=== PATIENT | male | born 1955 | race Caucasian/White ===

== ENCOUNTER 2020-01-15 15:50 | Inpatient (IN) ==
--- NOTE | 2020-01-15 16:34 | Diag Imaging Result Doc PS360 ---
CHEST-1 VIEW - 01/15/2020 INDICATION: cough COMPARISON: 09/03/2019 FINDINGS: Stable left chest device. 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 Stable hyperexpanded lungs compatible with COPD. Stable extensive bilateral apical pulmonary scarring. No new or focal infiltrates. No pneumothorax or pleural effusion. IMPRESSION: No change from prior. Electronically signed by Jeremy Powell 01/15/2020 4:31 PM
[2020-01-15 16:40] LABS: INR 2.35; PROTIME 26.4 Seconds (11.0-16.0)
[2020-01-15 16:41] LABS: BASO# 0.05 X1000 (0.0-0.2); BASO% 0.5 % (0.0-0.8); EOS# 0.01 X1000 (0.0-0.7); EOS% 0.1 % (0.0-10.0); HEMATOCRIT 42.8 % (42.0-52.0); HEMOGLOBIN 14.3 g/dL (14.0-18.0); IMM GRAN# 0.05 X1000 (0.0-0.04); IMM GRAN% 0.5 % (0.0-0.5); MCH 32.4 PG (27-31); MCHC 33.4 g/dL (33-37); MCV 97.1 FL (81-99); MONO# 1.67 X1000 (0.11-0.59); MONO% 17.5 % (1.7-9.3); MPV 10.2 FL (7.4-10.4); NEUT# 5.75 X1000 (1.4-6.5); NEUT% 60.4 % (42.2-75.2); PLT 270 X1000 (130-400); PTT 79.7 Seconds (22.3-41.8); RBC 4.41 XMIL (4.7-6.1); RDW 13.4 % (11.5-14.5); WBC 9.53 X1000 (4.8-10.8)
[2020-01-15 16:48] LABS: AGAP 13; ALB/GLOB RATIO 1.3; ALBUMIN 3.7 g/dL (3.5-5.0); ALKALINE PHOSPHATASE 72 U/L (32-122); BUN 13 mg/dL (8-22); CALCIUM 8.4 mg/dL (8.8-10.2); CHLORIDE 94 mmol/L (98-107); CK PROFILE 91 U/L (24-204); COSMO 263; CREATININE 1.1 mg/dL (0.7-1.2); ESTIMATED GFR > 60; GLUCOSE 101 mg/dL (70-104); GOT 14 U/L (10-34); GPT 9 U/L (10-44); POTASSIUM 4.3 mmol/L (3.5-5.1); SODIUM 131 mmol/L (136-145); TCO2 24 mmol/L (25-35); TOTAL BILIRUBIN 0.27 mg/dL (0.20-1.00); TOTAL PROTEIN 6.5 g/dL (6.3-8.3)
[2020-01-15] MEDS ORDERED: ROCEPHIN 1 GM in NS 50 ML IV ONE (17:55)
[2020-01-15] MEDS ORDERED: ZITHROMAX 500 MG/NS 500 MG/250 ML IVPB IV ONE (17:56)
[2020-01-15] MEDS ORDERED: NS 1,000 ML IV ONE (18:57)
[2020-01-15] MEDS ORDERED: CIPRO HC OTIC SUSPENSION LEFT EAR ONE (19:08)
--- NOTE | 2020-01-15 19:10 | PROVIDER DOCUMENTATION ---
This chart was entered by Fly Huerta Scribe, acting as scribe for Hue Silverman MD. HPI-General Adult - General Chief Complaint: SEPSIS ALERT - D Stated Complaint: POSS PNEUMONIA Time Seen by Provider: 01/15/20 17:02 Source: patient Allergies/Adverse Reactions: Patient Allergies Allergy/AdvReac Type Severity Reaction Status Date / Time No Known Allergies Allergy Verified 01/15/20 18:17 Home Medications: Home Medication List Medication Instructions Recorded Confirmed Last Taken Type Aspirin 81 mg PO DAILY 09/03/19 01/15/20 01/15/20 History Carvedilol [Coreg] 12.5 mg PO BID 09/03/19 01/15/20 01/15/20 History Isosorbide Mononitrate [Isosorbide 30 mg PO BID 09/03/19 01/15/20 01/15/20 History Mononitrate ER] PRAVAstatin [Pravachol] 20 mg PO QHS 09/03/19 01/15/20 01/14/20 History Amoxicillin/Pot Clavulanate 875 mg PO Q12HR #14 tab 01/12/20 01/15/20 01/15/20 Rx [Augmentin] Elviteg/Cob/Emtri/Tenof Alafen 1 tab PO DAILY 01/12/20 01/15/20 01/15/20 History [Genvoya Tablet] Sacubitril/Valsartan [Entresto 24 24 - 26 mg PO BID 01/15/20 01/15/20 01/15/20 History mg-26 mg Tablet] Acetaminophen [Tylenol] 650 mg PO Q6H PRN PRN tab 01/17/20 Unknown Rx Amoxicillin/Potassium Clav 1 ea PO BID 7 Days #14 tab 01/17/20 Unknown Rx [Augmentin 875-125 Tablet] Guaifenesin E.r. [Mucinex] 600 mg PO Q12HR 30 Days #60 tab 01/17/20 Unknown Rx Warfarin [Coumadin] 5 mg PO SuMoWeFrSa tab 01/17/20 Unknown Rx Warfarin [Coumadin] 7.5 mg PO TuTh tab 01/17/20 Unknown Rx - History of Present Illness -Gen Adult Nature of Presenting Problems: 64 y/o M presents to the ED c/o cough, left ear pain, congestion and drainage. Onset a few days ago. Patient states that he feels like he has pneumonia. Patient reports that he was placed on Amoxicillin earlier this week for a facial abscess. Patient denies known fever and all other symptoms. Location of Pain/Injury: reports: other (chest and ear) Pain Radiation: reports: no radiation Quality of Pain: reports: none Severity: reports: mild Onset/Duration: reports: 3 days ago Timing: reports: still present Context/Activities at Onset: reports: none Modifying Factors: improves with: nothing Associated Symptoms: reports: cough, EENT symptoms, sinus congestion/drainage Similar Symptoms Previously?: Yes Recently seen or treated by another doctor?: Yes Review of Systems - Adult - REVIEW OF SYSTEMS - ADULT Constitutional: reports: chills. denies: fever Eyes: reports: no symptoms reported Ears, Nose, Mouth & Throat: reports: no symptoms reported Cardiovascular: denies: chest pain, palpitations Respiratory: reports: cough Gastrointestinal: denies: abdominal pain, diarrhea, nausea, vomiting Genitourinary: reports: no symptoms reported Musculoskeletal: reports: no symptoms reported Integumentary: reports: no symptoms reported Neurological: denies: dizziness/vertigo, headache/migraines Psychiatric: reports: no symptoms reported Endocrine: reports: no symptoms reported Hematologic/Lymphatic: reports: no symptoms reported Allergic/Immunologic: reports: no symptoms reported All Other Systems: Reviewed and Negative Past History - Adult - PAST MEDICAL HISTORY-ADULT Review of Records: reports: Nursing Assessment Review, Medications Reviewed Major Childhood Illnesses: reports: denies history Cardiovascular: reports: CAD, CHF, HTN, CT (x2) Respiratory: reports: asthma, COPD Gastrointestinal: reports: denies history Obstetrical/Gynecological: reports: denies history Genitourinary: reports: denies history Musculoskeletal: reports: denies history Neurological: reports: denies history Endocrine/Immune: reports: HIV/AIDS Other Conditions: reports: denies history - PRIOR SURGERIES/PROCEDURES Surgical/Procedure History: reports: other (cervical spine) - IMMUNIZATION STATUS Childhood Immunizations: See Nurse Assessment Flu Vaccine: See Nurse Assessment - FAMILY HISTORY Family History: reviewed, not pertinent - SOCIAL HISTORY Smoking: cigarettes, less than 1 pack/day Substance Use: none/never Physical Exam-General - PHYSICAL EXAM-ADULT Initial Vital Signs Reviewed: Yes - CONSTITUTIONAL General Appearance: alert, no apparent distress - HEAD, EARS, NOSE, MOUTH & THROAT HENMT: moist mucous membranes, TM abnormal (left drainage and erythema) - NECK Neck: full range of motion, normal inspection - RESPIRATORY Respiratory: no respiratory distress, no accessory muscle use, crackles, rhonchi - CARDIOVASCULAR Cardiovascular: normal peripheral pulses, tachycardia - GASTROINTESTINAL (ABDOMEN) Abdominal Exam: non tender, soft - MUSCULOSKELETAL Back Exam: normal inspection Extremity: normal inspection - SKIN Integumentary: normal color, warm/dry - NEUROLOGIC Neurologic: no motor/sensory deficits - PSYCHIATRIC Psych/Mental Status: normal mood/affect, oriented x 3 Progress - PLAN OF CARE/RESULTS Progress/Plan/Lab Results: Vital Signs - 8 hr 01/15/20 15:54 Temperature 99.0 F Pulse Rate 129 H Respiratory Rate 22 Blood Pressure 112/68 O2 Sat by Pulse Oximetry 96 Laboratory Results - last 24 hr 01/15/20 01/15/20 01/15/20 16:10 16:10 16:10 WBC 9.53 RBC 4.41 L Hgb 14.3 Hct 42.8 MCV 97.1 MCH 32.4 H MCHC 33.4 RDW Std Deviation 13.4 Plt Count 270 MPV 10.2 Immature Gran % (Auto) 0.5 Neut % (Auto) 60.4 Lymph % (Auto) 21.0 [place] % (Auto) 17.5 H Eos % (Auto) 0.1 Baso % (Auto) 0.5 Immature Gran # (Auto) 0.05 H Neut # (Auto) 5.75 Lymph # (Auto) 2.00 [place] # (Auto) 1.67 H Eos # (Auto) 0.01 Baso # (Auto) 0.05 PT 26.4 H INR 2.35 PTT (Actin FS) 79.7 H Sodium 131 L Potassium 4.3 Chloride 94 L Carbon Dioxide 24 L Anion Gap 13 BUN 13 Creatinine 1.1 Estimated GFR/1.73 m2 > 60 BUN/Creatinine Ratio 12 Glucose 101 Calculated Osmolality 263 Calcium 8.4 L Total Bilirubin 0.27 AST 14 ALT 9 L Alkaline Phosphatase 72 Creatine Kinase 91 Troponin T High Sens Total Protein 6.5 Albumin 3.7 Globulin 2.8 Albumin/Globulin Ratio 1.3 Plasma Lactate 01/15/20 01/15/20 16:10 16:10 WBC RBC Hgb Hct MCV MCH MCHC RDW Std Deviation Plt Count MPV Immature Gran % (Auto) Neut % (Auto) Lymph % (Auto) [place] % (Auto) Eos % (Auto) Baso % (Auto) Immature Gran # (Auto) Neut # (Auto) Lymph # (Auto) [place] # (Auto) Eos # (Auto) Baso # (Auto) PT INR PTT (Actin FS) Sodium Potassium Chloride Carbon Dioxide Anion Gap BUN Creatinine Estimated GFR/1.73 m2 BUN/Creatinine Ratio Glucose Calculated Osmolality Calcium Total Bilirubin AST ALT Alkaline Phosphatase Creatine Kinase Troponin T High Sens 11 Total Protein Albumin Globulin Albumin/Globulin Ratio Plasma Lactate 0.8 Orders Category Date Time Status Cardiac Monitoring DIRECTED Care 01/15/20 15:58 Active IV Insertion ORDERED Care 01/15/20 15:58 Active Notify MD of + Sepsis Screen NOW Care 01/15/20 15:58 Active Notify Physician As Ordered Care 01/15/20 15:58 Active CHEST-1 VIEW [RAD] Stat Exams 01/15/20 15:58 Completed BLOOD CULTURE [BLDCUL] Stat Lab 01/15/20 16:10 Ordered CBC WITH DIFF [HEME] Stat Lab 01/15/20 16:10 Completed CK PROFILE [SP CHEM] Stat Lab 01/15/20 16:10 Completed COMPREHENSIVE METABOLIC PANEL [CHEM] Stat Lab 01/15/20 16:10 Completed LACTATE, PLASMA [CHEM] Lab 01/15/20 19:00 Uncollected LACTATE, PLASMA [CHEM] Lab 01/15/20 22:00 Uncollected LACTATE, PLASMA [CHEM] Q3H Lab 01/15/20 16:10 Completed PROTIME WITH INR [COAG] Stat Lab 01/15/20 16:10 Completed PTT [COAG] Stat Lab 01/15/20 16:10 Completed TROPONIN T HIGH SENSITIVITY Stat Lab 01/15/20 16:10 Completed URINALYSIS W/POSS RFLX CULT [URINALYSIS] Stat Lab 01/15/20 15:58 Uncollected Oxygen Device Stat Oth 01/15/20 15:58 Active Result Diagrams: 01/16/20 07:09 01/16/20 07:09 - XRAY 1 XRAY Study: Chest Impression: See EMR Report (CHEST-1 VIEW - 01/15/2020 INDICATION: cough COMPARISON: 09/03/2019 FINDINGS: Stable left chest device. 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 Stable hyperexpanded lungs compatible with COPD. Stable extensive bilateral apical pulmonary scarring. No new or focal infiltrates. No pneumothorax or pleural effusion. IMPRESSION: No change from prior. Electronically signed by Jeremy kim 01/15/2020 4:31 PM 01/15/20 1631 Interpreting Physician: Jeremy Powell MD Dictated Date/Time: 01/15/20 1629 cc: Hue Silverman MD; None,PCP) - CHANGE OF SHIFT REPORT (ED Provider) 1 Report Given and Care Transferred to:: Dr Dias Time of Transfer: 19:10 Items Pending: Other (peding admission) Departure - Departure Date of Disposition Decision: 01/15/20 Time of Disposition Decision: 19:00 DIAGNOSIS: COPD (chronic obstructive pulmonary disease) Qualifiers: COPD type: unspecified COPD Qualified Code(s): J44.9 - Chronic obstructive pulmonary disease, unspecified Disposition: ADMITTED INPATIENT 09 Certified Medical Emergency: Emergent Condition: Stable - Critical Care Note This patient required my direct & personal management of CC.: Yes Attestation - Physician/ VALORIE Attestation Patient care was provided by Advanced Practice Provider:: No The physician spent face to face time with patient:: Yes Advanced Practice Provider documentation review:: Supervising physician onsite and consulted in the evaluation and care of this patient. The physician did have a face to face encounter with the patient. This chart was documented by the indicated scribe, (Fly Huerta, Lidia) and accurately reflects the services I performed and decisions made by me, Hue Silverman MD, as attested by the provider's signature.
--- NOTE | 2020-01-15 20:00 | Diag Imaging Result Doc PS360 ---
EXAM: CT THORAX W/O CONTRAST HISTORY: cough, tachycardia, fever and chills TECHNIQUE: CT chest without intravenous contrast COMPARISON: 09/22/2013 FINDINGS: No pleural effusions. No cardiomegaly. No aortic aneurysm. There are several calcified subcarinal and right hilar lymph nodes. Mildly prominent noncalcified mediastinal nodes. These are slightly larger than on the prior study. There is emphysema and scarring in the apices. This has progressed. There is bronchial wall thickening. No consolidation. IMPRESSION: 1.Bronchitis 2.Emphysema 3.Fibrosis which has progressed compared to the prior study 4.Mildly prominent mediastinal nodes which are more pronounced than on the prior exam This exam was performed using automated exposure control, adjustment of mA or kV according to patient size, and/or use of iterative reconstruction technique. Electronically signed by Rao Shin 01/15/2020 7:58 PM
--- NOTE | 2020-01-15 21:17 | Diag Imaging Result Doc PS360 ---
EXAM: CT HEAD W/WO CONTRAST HISTORY: HIV, subjective fevers, purulent ear drainage TECHNIQUE: CT head with and without intravenous contrast COMPARISON: None. FINDINGS: No parenchymal hemorrhage. No epidural or subdural hematoma. No subarachnoid hemorrhage. No mass or midline shift. No enhancing lesion on the postcontrast images. No hydrocephalus. IMPRESSION: No hemorrhage or mass This exam was performed using automated exposure control, adjustment of mA or kV according to patient size, and/or use of iterative reconstruction technique. Electronically signed by Rao Shin 01/15/2020 9:14 PM
--- NOTE | 2020-01-15 21:18 | Diag Imaging Result Doc PS360 ---
EXAM: CT MAXILLOFACIAL(SINUS) W/CON HISTORY: hiv< SUBJECTIVE FEVERS, PUS DRAINAGE FROM EAR TECHNIQUE: CT sinuses with intravenous contrast COMPARISON: None. FINDINGS: The left masseter muscle is prominent and enhances compared to the right. No well-defined mass. No fluid collection. No sinus opacification. No air-fluid levels. IMPRESSION: Prominent enhancing left masseter muscle, but no well-defined mass or abscess. Electronically signed by Rao Shin 01/15/2020 9:16 PM
[2020-01-15 21:43] LABS: URINE SOURCE CLEAN CATCH
[2020-01-15] MEDS ORDERED: VANCOMYCIN 1 GM/NS 1 GM/250 ML IVPB IV SCH (22:00)
[2020-01-15] MEDS ORDERED: MAXIPIME 1 GM in NS 50 ML IV SCH (22:00)
[2020-01-15 22:13] LABS: UR AMPHETAMINES QUAL NONE DETECTED (NONE DETECT); UR BARBITUATES QUAL NONE DETECTED (NONE DETECT); UR BENZODIAZEPIN QUAL NONE DETECTED (NONE DETECT); UR CANNABINOIDS QUAL PRESUMPTIVE POSITIVE (NONE DETECT); UR COCAINE QUAL NONE DETECTED (NONE DETECT); UR METHADONE QUAL NONE DETECTED (NONE DETECT); UR OPIATES QUAL NONE DETECTED (NONE DETECT); UR OXYCODONE QUAL NONE DETECTED (NONE DETECT); UR PCP QUAL NONE DETECTED (NONE DETECT)
[2020-01-15 23:02] LABS: BILIRUBIN URINE NEGATIVE (NEGATIVE); BLOOD URINE MODERATE (NEGATIVE); COLOR YELLOW; GLUCOSE URINE NEGATIVE (NEGATIVE); KETONE URINE NEGATIVE (NEGATIVE); LEUKOCYTES URINE NEGATIVE (NEGATIVE); NITRITE URINE NEGATIVE (NEGATIVE); PROTEIN URINE TRACE mg/dL (NEGATIVE); SP GRAVITY URINE 1.047; TURBIDITY URINE CLEAR (CLEAR); UROBILINOGEN URINE NORMAL (NORMAL)
[2020-01-15 23:03] LABS: UR EPITHELIAL CELLS <10 /HPF (<10); URINE BACTERIA NEGATIVE /HPF; URINE WBC <10 /HPF (<10)
[2020-01-16] MEDS ORDERED: VANCOMYCIN IV PER PHARMACY MISC SCH (00:30)
[2020-01-16] MEDS ORDERED: VANCOMYCIN 1,800 MG in NS 250 ML IV ONE (01:15)
[2020-01-16] MEDS ORDERED: ZOFRAN IV PRN (01:32)
--- NOTE | 2020-01-16 01:53 | HISTORY AND PHYSICAL ---
PRIMARY CARE PHYSICIAN: None. CHIEF COMPLAINT: Cough, congestion, fever and left ear drainage. HISTORY OF PRESENTING ILLNESS: A 64-year-old male with a history of HIV, DVT, hypertension, coronary disease and COPD, who presented to the emergency department with several days history of having cough, congestion and recently he was having fever. The patient states that recently he was diagnosed with an ear abscess and was put on Augmentin; however, he complains of more drainage from his ear. He was evaluated in the emergency department and due to his presenting symptoms, it was thought that we would place him for observation for further evaluation and management. At the time of my examination, the patient denied any headache, visual changes, nausea, vomiting, diarrhea, chest pain, hemoptysis or any weight changes, but complained of cough, congestion, fever and left ear drainage. PAST MEDICAL HISTORY: Includes COPD, coronary artery disease, HIV, DVT, hypertension, chronic anemia. PAST SURGICAL HISTORY: Cervical spine fusion, throat surgery, and defibrillator placed recently. ALLERGIES: No known drug allergies. MEDICATIONS: Current medications include Augmentin 875 mg p.o. q.12 hours; aspirin 81 mg p.o. daily; carvedilol 12.5 mg p.o. b.i.d.; Genvoya 1 tablet daily; isosorbide mononitrate 30 mg p.o. b.i.d.; pravastatin 20 mg p.o. at bedtime; Entresto 24/26 mg 1 tablet b.i.d.; warfarin 5 mg p.o. daily. SOCIAL HISTORY: Kqssrf-lpfv-wweo-year history of smoking. Denies any history of alcohol or illicit drug use. FAMILY HISTORY: No history of coronary disease. REVIEW OF SYSTEMS: Fourteen point review of systems is as in HPI. Other systems negative. PHYSICAL EXAMINATION: GENERAL: Cooperative, friendly male. He is resting more comfortably now. VITAL SIGNS: Temperature 100.4 degrees, pulse 108, respirations 32, blood pressure 114/66. HEENT: Atraumatic, normocephalic. Extraocular movements intact. PERRLA. There is some drainage noted in the left ear. NECK: No masses. CHEST: Scattered wheezes. CARDIOVASCULAR: Regular rate and rhythm. ABDOMEN: Soft. Positive bowel sounds. EXTREMITIES: No edema. NEUROLOGIC: He is awake, alert, oriented x3. GENITOURINARY: No bladder distention. SKIN: Warm. LABORATORY DATA: WBC 9.53, hemoglobin 14.3, hematocrit 42.8, platelets 270,000. Sodium 131, potassium 4.3, chloride 94, CO2 is 24, BUN is 13, creatinine is 1.1, glucose 101. INR is 2.35. DIAGNOSTIC DATA: Maxillofacial CT shows some prominence in the left masseter muscle. CT of the chest shows bronchitis, emphysema. ASSESSMENT: A 64-year-old male with a history of chronic obstructive pulmonary disease, coronary artery disease, human immunodeficiency virus, deep venous thrombosis and hypertension, who had presented to the emergency department with several-day history of complaint of cough, congestion and fever. Recently he was put on antibiotics for possible abscess in his left ear; however, he states that he is having worsening symptoms and subsequently presented to the emergency department. He was seen in the emergency department . Most of his laboratory studies were within normal limits; however, due to his persisting presenting symptoms, it was thought that we will place him for observation, for further evaluation and management. 1. Chronic obstructive pulmonary disease with acute bronchitis. 2. Left ear discharge, recently treated for abscess. 3. Human immunodeficiency virus. 4. Chronic deep venous thrombosis. PLAN: 1. We will admit patient to medical floor with telemetry. 2. Continue with DuoNeb. 3. The patient was empirically treated with antibiotics in the ED. 4. We will continue the patient's Augmentin. 5. Restart his home medications. 6. The patient is on Coumadin, and that will suffice for DVT prophylaxis. 7. We will continue to follow, reassess and make further recommendation based on patient's clinical course. cc: Gianluca Landeros MD
[2020-01-16] MEDS: NS 1,000 ML IV SCH ×2 (02:20→16:12)
[2020-01-16] MEDS: DUONEB (A & A) INH SCH ×6 (03:30→23:20)
[2020-01-16 07:26] LABS: BASO# 0.04 X1000 (0.0-0.2); BASO% 0.4 % (0.0-0.8); HEMATOCRIT 40.7 % (42.0-52.0); HEMOGLOBIN 13.5 g/dL (14.0-18.0); IMM GRAN# 0.05 X1000 (0.0-0.04); IMM GRAN% 0.5 % (0.0-0.5); LYMPH# 1.41 X1000 (1.2-3.4); LYMPH% 15.3 % (20.5-51.1); MCH 32.6 PG (27-31); MCHC 33.2 g/dL (33-37); MCV 98.3 FL (81-99); MONO# 1.32 X1000 (0.11-0.59); MONO% 14.3 % (1.7-9.3); MPV 10.3 FL (7.4-10.4); NEUT# 6.39 X1000 (1.4-6.5); NEUT% 69.5 % (42.2-75.2); PLT 230 X1000 (130-400); RBC 4.14 XMIL (4.7-6.1); RDW 13.5 % (11.5-14.5); WBC 9.21 X1000 (4.8-10.8)
[2020-01-16 07:53] LABS: AGAP 13; BUN 13 mg/dL (8-22); CALCIUM 8.2 mg/dL (8.8-10.2); CHLORIDE 96 mmol/L (98-107); COSMO 266; CREATININE 1.1 mg/dL (0.7-1.2); ESTIMATED GFR > 60; GLUCOSE 89 mg/dL (70-104); POTASSIUM 4.5 mmol/L (3.5-5.1); SODIUM 133 mmol/L (136-145); TCO2 24 mmol/L (25-35)
[2020-01-16] MEDS: ASPIRIN PO SCH (08:01)
[2020-01-16] MEDS: COREG PO SCH ×2 (08:02→20:22)
[2020-01-16] MEDS: IMDUR PO SCH ×2 (08:02→20:22)
[2020-01-16] MEDS: AUGMENTIN PO SCH ×2 (08:02→20:22)
[2020-01-16] MEDS: TAMIFLU PO SCH ×2 (08:03→20:22)
[2020-01-16] MEDS: MUCINEX PO SCH ×2 (08:03→20:22)
[2020-01-16] MEDS: TYLENOL PO PRN ×2 (08:10→20:22)
[2020-01-16] MEDS ORDERED: COUMADIN PO SCH (09:00)
[2020-01-16] MEDS: PATIENT'S OWN MED PO SCH (13:04)
[2020-01-16] MEDS ORDERED: PRAVACHOL PO SCH (21:00)
[2020-01-17] MEDS ORDERED: VANCOMYCIN 1,200 MG in NS 250 ML IV SCH (01:15)
[2020-01-17] MEDS: DUONEB (A & A) INH SCH ×4 (03:33→15:26)
[2020-01-17] MEDS ORDERED: COUMADIN PO SCH (09:00)
[2020-01-17] MEDS: AUGMENTIN PO SCH (09:34)
[2020-01-17] MEDS: ASPIRIN PO SCH (09:34)
[2020-01-17] MEDS: IMDUR PO SCH (09:35)
[2020-01-17] MEDS: MUCINEX PO SCH (09:35)
[2020-01-17] MEDS: TAMIFLU PO SCH (09:35)
[2020-01-17] MEDS: COREG PO SCH (09:37)
[2020-01-17] MEDS: PATIENT'S OWN MED PO SCH (09:37)
[2020-01-17 15:12] VITALS: BP 92/56
--- NOTE | 2020-01-17 16:00 | DISCHARGE SUMMARY ---
ADMISSION DATE: 01/16/2020 DISCHARGE DATE: 01/17/2020 Has no primary care physician. Complaint of cough and congestion, fever, left ear drainage. A 64- year-old with history of HIV, DVT, hypertension, coronary artery disease and COPD presented to the emergency department after several day history of having cough, congestion, recently having fever. Patient states he recently was diagnosed with an ear abscess and was put on Augmentin however he complains more drainage from his ear was evaluated emergency department. Due to his presenting symptoms we thought he would place him in observation for further management. Time examination patient denied any headache, visual changes, nausea, vomiting, diarrhea, chest pain, hemoptysis or weight changes but complained of cough, congestion, fever and left ear drainage. PAST MEDICAL HISTORY: Includes 1. COPD. 2. Coronary artery disease. 3. HIV. 4. DVT. 5. Hypertension. 6. Chronic anemia. PAST SURGICAL HISTORY: 1. Cervical spine fusion. 2. Throat surgery. 3. Defibrillator placed recently. ADMISSION DIAGNOSIS: 1. Chronic obstructive pulmonary disease with acute bronchitis . 2. Left ear drainage recently treated for abscess. 3. Human immunodeficiency virus positive. 4. Chronic deep venous thrombosis. He was put in the hospital, given some DuoNebs and started on some antibiotics continued his Augmentin. Patient felt much better the next day and his exam he remained afebrile. Temperature 98.1 degrees, pulse 99, respirations 18, blood pressure 115/58, 112/55, 92/54, 85/48, pupils are equal and round. Lungs: Clear in all lung grant. Cardiovascular: Regular rhythm and rate without murmur, S3. Abdomen: Soft. Skin: Warm and dry. Maxillofacial CT showed prominent enhancing left masseter muscle but well defined, no mass or abscess appreciated. Head CT no hemorrhage or mass. Patient's ear pain was much better. Chest CT showed bronchitis, emphysema, fibrosis which is progressed compared to prior study, mildly prominent mediastinal nodes more pronounced than prior exam. Chest x-ray no change from prior, has a left chest device. 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 Will continue his Augmentin another 7 days 875 mg p.o. b.i.d. for another 7 days, aspirin 81 mg a day, Coreg 12.5 mg b.i.d., he will take his combination Qjakwbo-Rqu-Amvar-Tenof and he takes that once a day and Mucinex 600 mg p.o. twice a day, Imdur 30 mg b.i.d., Pravachol 20 mg a day, Coumadin 5 mg alternating looks like 5 mg Saturday, Saturday, Saturday, Saturday and Saturday and 7.5 mg Tuesdays and . Note that his pro time was 2.35 and his PT was 26 so will let him go home. Follow up with his primary care doctor and with Infectious Disease doctor . cc: Bryant Espino MD MTDQuinn
[2020-01-19] MEDS ORDERED: COUMADIN PO SCH (09:00)
== END 2020-01-17 15:43 | disposition home or self-care (01) | DRG 202 ==
LOC: ED 15:50 → 3N 01-16 00:58 → INTOOBSV 01-16 00:58 → SUATTDRO 01-16 00:58 → 3N 01-16 04:34
PROVIDERS: ATTEND Emergency Medicine